=== PATIENT | female | born 1965 | race African-American/Black ===

== ENCOUNTER 2020-02-23 15:38 | Emergency (ER) | payer SELFPAY ==
[~2020-02-23] VITALS: Ht 177.8 cm; Wt 65.0 kg
[2020-02-23 15:58] VITALS: BP 124/81
[2020-02-23] MEDS ORDERED: FLUORESCEIN SODIUM 1MG/STRIP RIGHTEYE ONE (16:30)
[2020-02-23] MEDS ORDERED: ACETAMINOPHEN 500MG TABLET PO ONE (16:45)
== END 2020-02-23 17:27 | disposition home or self-care (01) ==
LOC: ER 15:38
DX: H11.32 Conjunctival hemorrhage, left eye (principal); Y04.2XXA Assault by strike against or bumped into by another person, initial encounter; Y93.89 Activity, other specified; Y92.488 Other paved roadways as the place of occurrence of the external cause
CPT/HCPCS: 99281; 99283